=== PATIENT | male | born 1970 | race Caucasian/White ===

== ENCOUNTER → 2017-02-20 | Outpatient (CLI) | payer BC ==
[~2017-02-20] MED LIST: CHOL1000 PO; ESCI1TAB9 PO; FLUT0.15 NAE; IBUP-103 PO; LRT5 PO; MORP15TA19 PO; ZOLP10TA PO
--- NOTE | 2017-02-20 08:21 | DIAGNOSTIC IMAGING REPORT ---
(CHEST) THORAX WITHOUT CLINICAL HISTORY: 46 years-old Male presenting with ASBESTOS EXPOSURE,REDUCED VITAL CAPACITY. TECHNIQUE: Multidetector CT imaging of the chest was performed without the use of intravenous contrast. IV contrast: None. A dose lowering technique was used consistent with the principles of ALARA (as low as reasonably achievable). COMPARISON: Correlation made to chest x-ray from 04/24/2012. CT DOSE (mGy.cm): The estimated cumulative dose is 502.51 mGy.cm. FINDINGS: Drum Stock Clerk topogram: Unremarkable. On soft tissue windows, mass along the posterior aspect of the left thyroid lobe measures approximately 2.0 x 3.2 x 5.5 cm and may emanate from the thyroid, although this is not clearly demonstrated without the use of intravenous contrast. Nodule in the right thyroid lobe also suggested measuring 1.3 cm area No axillary, supraclavicular, or mediastinal lymphadenopathy. Evaluation for hilar lymphadenopathy is limited without intravenous contrast. Normal aorta. Multichamber enlargement of the heart. No pericardial or pleural effusion. Upper abdomen normal. On lung windows, minimal dependent changes likely atelectasis. No pleural thickening or pleural calcification evident. 3 mm solid pulmonary nodule in the right lower lobe (series 4 image 149). No other focal infiltrate or nodule. Airways patent. On bone windows, normal osseous structures. IMPRESSION: 1. No convincing evidence of acute intrathoracic pathology. No CT evidence of asbestos exposure. 2. 3 mm solid pulmonary nodule in the right lower lobe. Follow-up per Fleischner Society 2017 recommendations below. 3. 2.0 x 3.2 x 5.5 cm mass along the posterior left thyroid lobe, which may made from the thyroid although this is not clearly demonstrated. Further evaluation with dedicated thyroid ultrasound is recommended. Please refer to below summary of Fleischner Society 2017 recommendations for follow-up of incidental CT nodules (H Pedro et al. Guidelines for management of incidental pulmonary nodules detected on CT images: From the Fleischner Society 2017. Radiology 2017; 284: 228-243.) SOLID NODULES Single nodule; size <6 mm * Low risk patients: No routine follow-up * High risk patients: Optional CT at 12 months Single nodule; size 6-8 mm * Low risk patients: CT at 6-12 months, then consider CT at 18-24 months * High risk patients: CT at 6-12 months, then at 18-24 months Single nodule; size >8 mm * Either low or high risk patients: Considered CT at 3 months, PET/CT, or tissue sampling Multiple nodules; size <6 mm * Low risk patients: No routine follow up * High risk patients: Optional CT at 12 months Multiple nodules; size 6-8 mm * Low risk patients: CT at 3-6 months, then consider CT at 18-24 months * High risk patients: CT at 3-6 months, then at 18-24 months Multiple nodules; size >8 mm * Low risk patients: CT at 3-6 months, then consider at 18-24 months * High risk patients: CT at 3-6 months, then at 18-24 months Note: These guidelines apply to incidental nodules. These guidelines did not apply to patients younger than 35 years, immunocompromised patients, or patients with cancer. * Low risk patients: Minimal or absent history of smoking and/or other known risk factors * High risk patients: History of smoking, exposure to other carcinogens, emphysema, fibrosis, upper lobe location, family history of lung cancer, etc. * If a nodule up to 8 mm is partly solid or is ground glass further follow-up is required after 24 months to exclude possible slow growing adenocarcinoma SUBSOLID NODULES Single ground-glass nodule * Nodule size < 6 mm: No routine follow-up * Nodule size > or = 6 mm: CT at 6-12 months to confirm persistence, then CT every 2 years until 5 years Single part-solid nodule * Nodule size < 6 mm: No routine follow-up * Nodules size > or = 6 mm: CT at 3-6 months to confirm persistence. If unchanged and solid component remains < 6 mm, annual CT should be performed for 5 years Multiple nodules * Nodule size < 6 mm: CT at 3-6 months. If stable, consider CT at 2 and 4 years. * Nodules size > or = 6 mm: CT at 3-6 months. Subsequent management based on the most suspicious nodule(s) Electronically signed by: Eagle Nicole M.D. 02/20/2017 8:19 AM Dictated Date/Time: 02/20/2017 8:12 AM
== END | disposition home or self-care (01) ==
LOC: C.CTS 07:59
PROVIDERS: ATTEND Internal Medicine Critical Care Medicine
DX: R94.2 Abnormal results of pulmonary function studies (principal); Z77.090 Contact with and (suspected) exposure to asbestos; R91.1 Solitary pulmonary nodule; E04.1 Nontoxic single thyroid nodule

== ENCOUNTER → 2017-03-06 | Outpatient (CLI) | payer BC ==
--- NOTE | 2017-03-06 08:47 | DIAGNOSTIC IMAGING REPORT ---
SOFT TISS HEAD/NECK-THYROID CLINICAL HISTORY: 46 years-old Male with THYROID NODULE. 3.2 cm mass in region of the inferior left thyroid lobe was noted on comparison chest CT 02/20/2017. This is a follow-up study. COMPARISON: Chest CT 02/20/2017 TECHNIQUE: Multiple real time sonographic images of the thyroid were obtained accessing najera scale appearance and color doppler flow. FINDINGS: MEASUREMENTS: Right lobe: 5.0 x 1.9 x 2.6 cm Left lobe: 5.0 x 1.0 x 2.3 cm Isthmus: 0.3 cm PARENCHYMA: The thyroid parenchymal is mildly heterogeneous. NODULES: Numerous nodules and probable colloid cysts are noted. There is a septated versus two subadjacent predominantly cystic lesions which overall measure 3.8 x 1.3 x 1.5 cm in the right thyroid. No suspicious associated mural nodularity identified. There is a large lobulated thin-walled cystic structure involving the posterior left thyroid, 6.0 x 2.7 x 2.8 cm with a focus of mural nodularity measuring 6 x 4 mm demonstrating internal vascularity seen on image 29 of to 60. Smaller colloid cysts are also seen throughout the left thyroid. IMPRESSION: 1. Large lobulated cystic lesion of the left neck appears to originate from the left lobe of the thyroid measuring up to 6.0 cm demonstrating a small area of vascular mural nodularity as above. Follow-up ultrasound in 6 months is recommended to further evaluate. 2. Multiple colloid cysts are present bilaterally. The above report was generated using voice recognition software. It may contain grammatical, syntax or spelling errors. Electronically signed by: Josef Ferguson M.D. 03/06/2017 8:46 AM Dictated Date/Time: 03/06/2017 8:34 AM
[2017-03-06 11:38] LABS: THYROID STIMULATING HORMONE 1.08 uIu/ml (0.300-4.500)
== END | disposition home or self-care (01) ==
LOC: C.ULTRBC 08:04
DX: E04.1 Nontoxic single thyroid nodule (principal)

== ENCOUNTER → 2017-03-10 | Outpatient (CLI) | payer BC ==
[~2017-03-10] MED LIST changes: -FLUT0.15 NAE
[2017-03-10 17:46] LABS: BASO % 0.6 %; BASO ABS # 0.03 K/uL (0-0.2); COMPLETE YES; HEMATOCRIT 46.8 % (42-52); IG% 0.4 %; LYMPH % 25.6 %; LYMPH ABS # 1.35 K/uL (1.2-3.4); MEAN CELL VOLUME 86.2 fL (80-100); MEAN CORPUSCULAR HEMOGLOBIN 27.1 pg (25-34); MEAN CORPUSCULAR HGB CONC 31.4 g/dl (32-36); MEAN PLATELET VOLUME 9.7 fL (7.4-10.4); MONO % 7.8 %; NEUT % 62.6 %; PLATELET COUNT 239 K/uL (130-400); RED BLOOD COUNT 5.43 M/uL (4.7-6.1); WHITE BLOOD COUNT 5.27 K/uL (4.8-10.8)
[2017-03-10 17:57] LABS: INR 1.1 (0.9-1.1); PARTIAL THROMBOPLASTIN RATIO 1.1; PROTHROMBIN TIME (PATIENT) 11.3 SECONDS (9.0-12.0)
[2017-03-10 18:15] LABS: ALT/SGPT 35 U/L (12-78); BLOOD UREA NITROGEN 13 mg/dl (7-18); CALCIUM 8.9 mg/dl (8.5-10.1); CARBON DIOXIDE 29 mmol/L (21-32); CHLORIDE 105 mmol/L (98-107); GLUCOSE 98 mg/dl (70-99); POTASSIUM 3.9 mmol/L (3.5-5.1); SODIUM 141 mmol/L (136-145)
[2017-03-10 18:18] LABS: ALB/GLOB RATIO 1.1 (0.9-2); ALKALINE PHOSPHATASE 103 U/L (45-117); AST/SGOT 23 U/L (15-37)
== END | disposition home or self-care (01) ==
LOC: C.LAB 16:22
PROVIDERS: ATTEND Internal Medicine Critical Care Medicine
DX: J38.6 Stenosis of larynx (principal); Z77.090 Contact with and (suspected) exposure to asbestos

== ENCOUNTER 2017-03-15 07:22 | Day surgery (SDC) | payer BC ==
[2017-03-15] VITALS (19 sets, daily range): BP systolic 99–117; BP diastolic 68–77; PULSE 46–96; TEMP 36.4–36.5; O2SAT 95–100; Ht 190.5 cm; Wt 101.0 kg
[~2017-03-15] VITALS: Ht 190.5 cm; Wt 101.0 kg
[~2017-03-15 07:22] MED LIST changes: -CHOL1000 PO; -IBUP-103 PO
[2017-03-15] MEDS ORDERED: IBUP-103 PO (08:30)
[2017-03-15] MEDS ORDERED: CHOL1000 PO (08:30)
--- NOTE | 2017-03-15 08:42 | History and Physical ---
History & Physical Date Mar 15, 2017. 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 Yearly they have to do peak flow meters for evaluation and this year the patient was only able to blow at a rate of 400. Last year he was notably able to blow 750. Due to this the patient was sent for evaluation. 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 He also has a positive history sleep apnea treated was 10 centimeters of water pressure and intermittently with mouthpiece. Patient also notes first-degree relative, his dad, who of lung carcinoma. The patient denies any progressive dyspnea on exertion and is able to perform all his ADLs as well as play with his kids, riding motorcycles, playing soccer with no limitations as compared to the previous year. He also denies productive cough, pleurisy, cardiac chest pain, fever, chills or unintentional weight loss. He does have a longstanding history of rhinitis with postnasal drip and associated intermittent mucus secretions. Patient was then evaluated by Dr. Luis Estes of the ENT department via laryngoscopy Dr. Estes did note possible subglottic stenosis which will be evaluated during this patient's bronchoscopy. Bedside spirometry 01/12/2017 FEV1: 162% FVC: 143% FEV1/FVC 80 Past medical history 1. Deviated nasal septum 2. Esophageal reflux 3. Major depressive disorder 4. Impotence 5. Dyslipidemia 6. Moderate obstructive sleep apnea 7. Chronic sinusitis 8. Moderately severe sleep apnea (AHI: 17.7) Polysomnogram performed 3 2013--patient requires titration study Medications 1. Flonase 2 puffs b.i.d. 2. Lexapro 10 milligrams daily 3. Moderate leuk as 10 milligrams daily Drug allergies 1. Antihistamines-hives 2. Naproxen-sore throat mouth 3. Levofloxacin-sores in the mouth Past Medical/Surgical History Past medical history 1. Deviated nasal septum 2. Esophageal reflux 3. Major depressive disorder 4. Impotence 5. Dyslipidemia 6. Moderate obstructive sleep apnea 7. Chronic sinusitis 8. Moderately severe sleep apnea (AHI: 17.7) Polysomnogram performed 3 2013--patient requires titration study Medications 1. Flonase 2 puffs b.i.d. 2. Lexapro 10 milligrams daily 3. Moderate leuk as 10 milligrams daily Drug allergies 1. Antihistamines-hives 2. Naproxen-sore throat mouth 3. Levofloxacin-sores in the mouth Active Problems 1. Allergic rhinitis 2. Deviated nasal septum 3. Dyslipidemia, goal LDL below 100 4. Esophageal reflux 5. Impotence of organic origin 6. Major depressive disorder, single episode, moderate 7. Moderate obstructive sleep apnea 8. Reduced vital capacity Surgical History 1. History of Back Surgery Social History Does not use smokeless tobacco Never a smoker Occasional alcohol use Allergies 1. Antihistamine TABS 2. levofloxacin 3. Naproxen TABS Additional History Hepatic Disease: No Endocrine Disorder: Yes Kidney Disease: No Hypertension: No Heart Disease: No Bleeding Tendencies: No Infectious Diseases: No Allergies Coded Allergies: Diphenhydramine (Verified Allergy, Intermediate, hives, 03/15/17) Naproxen (Verified Adverse Reaction, Mild, SORES IN MOUTH, 03/15/17) Home Medications Scheduled Cholecalciferol (Vitamin D3), 2 TAB PO DAILY Escitalopram Oxalate (Lexapro), 10 MG PO DAILY Scheduled PRN Ibuprofen Tab (Advil), 400-600 MG PO Q6H PRN for Pain Physical Examination Skin: warm/dry, no rash Eyes: normal inspection, EOMI, sclerae normal ENT: normal ENT inspection, pharynx normal Head: normocephalic, atraumatic Neck: supple, no adenopathy, trachea midline Respiratory/Chest: lungs clear, normal breath sounds, no respiratory distress Cardiovascular: regular rate, rhythm, no edema, no murmur Abdomen / GI: normal bowel sounds, non tender Back: normal inspection Extremities: normal inspection, normal range of motion Neurologic/Psych: no motor/sensory deficits, alert, normal reflexes, oriented x 3 Diagnosis Progressive dyspnea on exertion 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
--- NOTE | 2017-03-15 09:09 | History & Physical Bridge Note ---
H&P Re-Evaluation Bridge Note: I have examined the patient, reviewed the History & Physical and in the interval since the performance of the History & Physical I have noted the following changes of clinical significance: No changes noted
--- NOTE | 2017-03-15 09:09 | Procedure Note ---
Pre-Mod Sedation Assessment General Date of Moderate Sedation: Mar 15, 2017. Vital Signs: Vital Signs Past 12 Hours Date Time Temp Pulse Resp B/P (MAP) Pulse Ox O2 Delivery O2 Flow Rate FiO2 03/15/17 08:33 36.4 55 20 107/70 (82) 95 Room Air Review Cardiovascular: regular rate, rhythm, no edema, no gallop, no JVD, no murmur, normal peripheral pulses Abdomen: normal bowel sounds, non tender, soft, no organomegaly, no pulsatile mass Lungs: chest non-tender, lungs clear, normal breath sounds Airway Class: III Pre-Sedation Airway Assessment Oral Cavity: Capped Teeth, WNL Short Thick Neck: No Hx of Sleep Apnea: Yes Smoking Status: Never Smoker Mallampati Classification: Class I ASA Classification: Class II Procedure Planning Contraindications-for Mod Sed: None Yes Notes The planned sedation has been discussed with the patient and consent obtained. I have identified the patient, determined the appropriateness of sedation and have assessed the patient immediately prior to the procedure. All medicine(s) and interventions are by my order.
[2017-03-15] MEDS ORDERED: NURSING VERBAL MED ORDER ONE ×2 (09:15→12:00)
--- NOTE | 2017-03-15 10:05 | Procedure Note ---
Post-Moderate Sedation Plan General Date of Moderate Sedation Mar 15, 2017. Vital Signs: Vital Signs Past 12 Hours Date Time Temp Pulse Resp B/P (MAP) Pulse Ox O2 Delivery O2 Flow Rate FiO2 03/15/17 09:50 54 16 105/72 100 Mask 4.0 03/15/17 09:45 56 20 113/76 100 Room Air 8.0 03/15/17 09:40 47 20 108/76 100 Room Air 8.0 03/15/17 09:35 49 20 111/77 100 Room Air 8.0 03/15/17 09:30 51 20 108/68 100 Room Air 8.0 03/15/17 09:25 46 20 104/72 100 Room Air 8.0 03/15/17 09:22 48 20 111/77 100 Room Air 8.0 03/15/17 09:10 36.4 55 20 107/70 95 Room Air 03/15/17 08:33 36.4 55 20 107/70 (82) 95 Room Air Review - Discharge Plan Post Moderate Sedation Plan: On clinical assessment, the patient appears to have tolerated the conscious sedation without complications. Patient is recovering as anticipated. Patient will continue to be monitored by nursing and may be discharged when conscious sedation discharge criteria are met.
--- NOTE | 2017-03-15 10:08 | Bronchoscopy Procedure Note ---
Bronchoscopy Procedure Note Procedure: Bronchoscopy, conscious sedation, bronchial lavage lingula Consent: Obtained through the patient placed into the chart Pre-procedural diagnosis: Subglottic stenosis/tracheal stenosis Post-procedural diagnosis: Progressive dyspnea on exertion Start time: 944 End time: 1000 Total time: 15 minutes Analgesia: 2% liquid lidocaine: Via nebulizer 4% gel lidocaine: Via right naris 2% liquid lidocaine: Via bronchoscopy Sedation: Versed IV: 2mg Fentanyl IV: 50 g Procedure: The Olympus video bronchoscope was used for this procedure and passed down through the right naris Right naris/posterior naris/posterior oropharynx: Anatomically within normal limits Glottis: Anatomically within normal limits Vocal cords: Proper abduction and abduction, anatomically within normal limits Subglottis: Anatomically within normal limits Trachea: Anatomically within normal limits there is some mild inward flexion of 10th 11 tracheal ring but no signs of malacia no signs of significant tracheal obstruction Sarina: Anatomically within normal limits Right bronchial tree: Right mainstem bronchus: Anatomically within normal limits Right upper lobe: Anatomically within normal limits Bronchus intermedius: Anatomically within normal limits Right middle lobe: Anatomically within normal limits Right lower lobe: Anatomically within normal limits Findings: No significant findings noted Left bronchial tree: Left mainstem bronchus: Anatomically within normal limits Left upper lobe: Anatomically within normal limits Lingula: Anatomically within normal limits Left lower lobe: Anatomically within normal limits Findings: No significant findings noted Bronchial alveolar lavage: Lingula EBL: None Complications: None Follow-up: In the [facility]
--- NOTE | 2017-03-15 10:11 | Discharge Instructions ---
Discharge Instructions Date of Service Mar 15, 2017. Admission Reason for Admission: Subglottic Stenosis, Dr Sung Discharge Discharge Diagnosis / Problem: initial diagnosis possible tracheal stenosis/ postprocedural diagnosis progr Discharge Goals Goal(s): Diagnostic testing Activity Recommendations Activity Limitations: resume your previous activity . Instructions / Follow-Up Instructions / Follow-Up Follow-up with Dr. Luis Saucedo from the ENT department [facility] well [facility] Current Hospital Diet Patient's current hospital diet: Discharge Diet Recommended Diet: Regular Diet Procedures Procedures Performed: Bronchoscopy, bronchial lavage of the lingula Conscious sedation Pending Studies Studies pending at discharge: no Medical Emergencies . Who to Call and When: Medical Emergencies: If at any time you feel your situation is an emergency, please call 911 immediately. . Non-Emergent Contact Non-Emergency issues call your: Warp Hauler . . "Provider Documentation" section prepared by Edgar Sung. . VTE Core Measure Inpt VTE Proph given/why not?: Treatment not indicated
[2017-03-15] MEDS ORDERED: DEXTROSE 5% 1000ML 1,000 ML IV ONE (10:45)
[2017-03-15] MEDS ORDERED: FENTANYL CITRATE INJ 50 MCG/1 ML 2 ML VIAL IV ONE (12:15)
[2017-03-15] MEDS ORDERED: MIDAZOLAM HCL 5 MG/ML 1 ML VIAL IV ONE (12:15)
== END 2017-03-15 12:21 | disposition home or self-care (01) ==
LOC: C.ACU 07:22
PROVIDERS: ATTEND Internal Medicine Critical Care Medicine
DX: J38.6 Stenosis of larynx (principal); Z77.090 Contact with and (suspected) exposure to asbestos; R06.00 Dyspnea, unspecified

== ENCOUNTER 2017-03-29 08:07 | Inpatient (IN) | payer BC ==
[2017-03-23 12:05] VITALS: BMI 28.0
--- NOTE | 2017-03-23 12:42 | PAT Medication Instructions ---
Service Date Mar 23, 2017. Current Home Medication List Cholecalciferol (Vitamin D3), 2,000 UNITS PO QAM Escitalopram Oxalate (Lexapro), 10 MG PO QAM Fluticasone Propionate (Nasal) (Flonase Allergy Relief), 2 SPRAYS TONI QAM Ibuprofen Tab (Advil), 400-600 MG PO Q6H PRN for Pain Medication Instructions For Your Scheduled Surgery - Hold the following medications 2 weeks prior to surgery per surgeon's instructions: Ibuprofen Tab (Advil), 400-600 MG PO Q6H PRN for Pain - Hold the following medications the morning of surgery: Cholecalciferol (Vitamin D3), 2,000 UNITS PO QAM - Take the following medications the morning of surgery with a sip of water: Fluticasone Propionate (Nasal) (Flonase Allergy Relief), 2 SPRAYS TONI QAM Escitalopram Oxalate (Lexapro), 10 MG PO QAM If you have any questions please call us at [phone] or [phone] or [phone]
[2017-03-29] VITALS (8 sets, daily range): BP systolic 107–127; BP diastolic 63–79; PULSE 50–67; TEMP 36.4–36.7; O2SAT 94–98; Ht 190.5 cm; Wt 103.0 kg
[~2017-03-29] VITALS: Ht 190.5 cm; Wt 103.0 kg
[~2017-03-29 08:07] MED LIST changes: +CEFAZOLIN 2000 MG/60 ML D5W 60 ML IV SCH; +CHOL1000 PO; +FLUT0.15 NAE; +IBUP-103 PO; +LACTATED RINGER'S 1000ML 1,000 ML IV SCH; -LRT5 PO; -MORP15TA19 PO; +SCOPOLAMINE 1.5 MG TDSY TD SCH; -ZOLP10TA PO
[2017-03-29] MEDS ORDERED: FENTANYL CITRATE INJ 50 MCG/1 ML 2 ML VIAL ONE ×3 (09:13→12:47)
[2017-03-29] MEDS ORDERED: MIDAZOLAM HCL 1 MG/ML 2ML VIAL ONE (09:13)
[2017-03-29] MEDS ORDERED: ONDANSETRON INJ 2 MG/ML 2 ML VIAL IV PRN (09:45)
[2017-03-29] MEDS ORDERED: EpHEDrine SULFATE INJ 50 MG/ML AMP IV PRN (09:45)
[2017-03-29] MEDS ORDERED: PROMETHAZINE HCL INJ 6.25 MG in SODIUM CHLORIDE 0.9% 50ML 50 ML IV PRN (09:45)
[2017-03-29] MEDS ORDERED: ATROPINE SULFATE 0.1 MG/ML 5ML SYR IV PRN (09:45)
[2017-03-29] MEDS ORDERED: LIDOCAINE/EPINEPHRINE 1% 20 ML VIAL ONE (10:56)
[2017-03-29] MEDS ORDERED: THROMBIN 5000 UNITS KIT ONE (10:56)
[2017-03-29] MEDS ORDERED: BACITRACIN OINT 15 GM TUBE ONE (10:56)
[2017-03-29] MEDS ORDERED: PROPOFOL IV EMULSION 10 MG/ML 20 ML VIAL IV ONE (11:51)
[2017-03-29] MEDS ORDERED: LIDOCAINE HCL 2% 2 ML VIAL (20MG/ML) ONE (11:51)
[2017-03-29] MEDS ORDERED: ROCURONIUM BROMIDE 10 MG/ML 5 ML VIAL IV ONE (11:51)
[2017-03-29] MEDS ORDERED: DEXAMETHASONE SOD INJ 4 MG/ML VIAL ONE (11:52)
[2017-03-29] MEDS ORDERED: ONDANSETRON INJ 2 MG/ML 2 ML VIAL ONE (11:52)
--- NOTE | 2017-03-29 13:23 | [facility] Operative Report ---
Operative Report Operative Date Mar 29, 2017. Pre-Operative Diagnosis Thyroid nodule/Substernal goiter Post-Operative Diagnosis Same Procedure(s) Performed Total Thyroidectomy Surgeon Dr. Luis Estes Food Safety Technician Surgeon(s) Mary Miles PA-C Estimated Blood Loss 25ml Findings 1. large ~6cm cystic nodule left inferior thyroid lobe extending substernally 2. ~3cm cystic nodule right mid pole Specimens Permanent Specimens: A.) Right Thyroid Lobe, Double Stitch Superior Pole, Single Stitch Isthmus B.) Left Thyroid Lobe, Double Stitch Superior Pole, Single Stitch Isthmus I attest to the content of the Intraoperative Record and any orders documented therein. Any exceptions are noted below.
[2017-03-29] MEDS ORDERED: MoRPHine SULFATE 2 MG/ML CARP IV PRN (13:30)
[2017-03-29] MEDS ORDERED: ACETAMINOPHEN 325 MG TAB PO PRN (13:30)
--- NOTE | 2017-03-29 13:30 | Discharge Instructions ---
Discharge Instructions Date of Service Mar 29, 2017. Admission Reason for Admission: Subglottic Stenosis, Thyroid Nodule Discharge Discharge Diagnosis / Problem: SAME Discharge Goals Goal(s): Therapeutic intervention Activity Recommendations Activity Limitations: as noted below 1. LIGHT ACTIVITY FOR 2 WEEKS 2. NO DRIVING WHILE ON NORCO . Current Hospital Diet Patient's current hospital diet: Discharge Diet Recommended Diet: Regular Diet Procedures Procedures Performed: Total Thyroidectomy Pending Studies Studies pending at discharge: no Medical Emergencies . Who to Call and When: Medical Emergencies: If at any time you feel your situation is an emergency, please call 911 immediately. . Non-Emergent Contact Non-Emergency issues call your: Surgeon . . "Provider Documentation" section prepared by Luis Estes. . VTE Core Measure Inpt VTE Proph given/why not?: SCD's
[2017-03-29] MEDS: FENTANYL CITRATE INJ 50 MCG/1 ML 2 ML VIAL IV PRN ×4 (13:59→14:13)
--- NOTE | 2017-03-29 14:01 | OPERATIVE REPORT ---
DATE OF OPERATION: 03/29/2017 PREOPERATIVE DIAGNOSIS: Left greater than right multinodular goiter with a large substernal cystic nodule on the left hand side. POSTOPERATIVE DIAGNOSIS: Left greater than right multinodular goiter with a large substernal cystic nodule on the left hand side. PROCEDURE: Total thyroidectomy. SURGEON: Dr. Estes. PLASTIC SURGERY SPECIALIST: Jd. ANESTHESIA: General endotracheal with nerve integrity monitor endotracheal tube. ESTIMATED BLOOD LOSS: 25 mL. FINDINGS: 1. Large cystic left inferior pole thyroid nodule that measured approximately 6 cm and extended substernally. 2. Approximate 3 cm right mid pole cystic nodule. SPECIMENS: Right and left thyroid lobe sent separately for permanent pathological assessment. DRAINS: None. COMPLICATIONS: None. INDICATIONS FOR THE PROCEDURE: The patient is a 46-year-old male who had a history of dyspnea and was evaluated by pulmonary who ordered a CT scan of the chest which incidentally showed a multinodular thyroid gland with a large cystic nodule emanating from the posterior aspect of the left thyroid gland and extending into the chest. There was no significant tracheal deviation. The patient also had a followup thyroid ultrasound that I ordered which showed overall a multinodular goiter with also a cystic nodule involving the right side that measured approximately 3.8 cm. Due to the diagnostic dilemma of these large nodules as well as the progressive dyspnea, total thyroidectomy was recommended. The patient presents for the above-mentioned procedure on an inpatient elective basis. DESCRIPTION OF PROCEDURE: After informed consent had been obtained from the patient, the patient was wheeled to the operating room and placed on the operating room table in the supine position. Monitors were placed. After induction of general endotracheal anesthesia with a size 8 nerve integrity monitor endotracheal tube, the patient's head and neck were gently extended and a marking pen was used to outline the planned 6 cm incision in a natural skin crease 2 fingerbreadths above the level of clavicles. A total of 3 mL of 1% lidocaine with 1:100,000 epinephrine was used to inject the skin and subcutaneous tissues overlying the planned incision site. The skin in the neck and chest was then prepped and draped in the usual sterile fashion. A #15 scalpel was then used to make the incision through the skin, subcutaneous tissue, and platysma. Subplatysmal flaps were raised superiorly to the level of the thyroid notch and inferiorly to the level of the clavicles. The median raphe of the straps was divided using Bovie electrocautery. The strap muscles were retracted laterally and the right thyroid lobe was first addressed. Overall, the gland was quite large and therefore the decision was made to divide the strap muscles transversely using a Harmonic scalpel. The middle thyroid vein as well as superior and inferior thyroid vascular pedicles were divided adjacent to the thyroid capsule using a Harmonic scalpel. Dissection was carried lateral to medial with care to identify and preserve the right recurrent laryngeal nerve. Also, superior and inferior parathyroid candidates were identified and preserved. Due to the large size of the gland, the thyroid gland was divided at the isthmus using Harmonic scalpel. Orienting sutures were placed onto the right thyroid lobectomy specimen, which was sent off for permanent pathological assessment. Of note, there was a large cystic nodule measuring 3-4 cm involving the mid pole on the right side. The left side was then addressed in a similar fashion. On this side, there was a large cystic nodule involving the inferior aspect that extended substernally. During the dissection, the cyst inadvertently popped. The left side was removed in similar fashion to the right hand side with care to identify and preserve the left recurrent laryngeal nerve as well as superior and inferior parathyroid candidates. Orienting sutures were placed on the left thyroid lobectomy specimen which was sent off for permanent pathologic specimen. The wounds were copiously irrigated with sterile water and suctioned. Hemostasis was confirmed with a Valsalva maneuver. Small pieces of Surgicel followed by topical spray thrombin were placed in the bilateral tracheoesophageal grooves for added hemostatic effect. The divided strap muscles were then reapproximated using several simple interrupted 3-0 Vicryl sutures. The strap muscles were then reapproximated in the midline using a simple running interlocked 3-0 Vicryl suture. The platysma was then closed with several deep 4-0 Monocryl sutures. The skin was then closed with a simple running subcuticular 5-0 Monocryl suture. The incision was cleansed and dried. Dermabond was applied to the incision. This marked the end of the case. The patient tolerated the procedure well. There were no apparent complications. The patient was extubated and transferred to recovery room in stable condition. I attest to the content of the Intraoperative Record and any orders documented therein. Any exception s are noted below.
--- NOTE | 2017-03-29 14:43 | Anesthesiology Progress Note ---
Anesthesia Post Op Note Date & Time Mar 29, 2017 at 14:43 Vital Signs Pain Intensity: 4 Vital Signs Past 12 Hours Date Time Temp Pulse Resp B/P (MAP) Pulse Ox O2 Delivery O2 Flow Rate FiO2 03/29/17 14:40 36.4 70 16 121/66 97 Nasal Cannula 2 03/29/17 14:30 77 16 123/81 97 Nasal Cannula 2 03/29/17 14:20 36.4 78 16 121/82 97 Nasal Cannula 2 03/29/17 14:10 85 16 123/71 99 Oxymask 10 03/29/17 14:00 79 16 122/83 99 Oxymask 10 03/29/17 13:53 36.8 81 16 122/73 98 Oxymask 10 03/29/17 08:36 36.4 59 18 117/67 (84) 96 Room Air Notes Mental Status: alert / awake / arousable, participated in evaluation Pt Amnestic to Procedure: Yes Nausea / Vomiting: adequately controlled Pain: adequately controlled Airway Patency, RR, SpO2: stable & adequate BP & HR: stable & adequate Hydration State: stable & adequate Anesthetic Complications: no major complications apparent
[2017-03-29] MEDS: ONDANSETRON INJ 2 MG/ML 2 ML VIAL IV PRN ×2 (15:19→21:42)
[2017-03-29] MEDS ORDERED: INFLUENZA VIRUS QUAD VACCINE 0.5 ML SYR IM. ONE (15:45)
[2017-03-29] MEDS ORDERED: INFLUENZA ADMINISTRATION CHARGE ONE (15:45)
[2017-03-29] MEDS ORDERED: LACTATED RINGER'S 1000ML 1,000 ML IV SCH (16:00)
[2017-03-29] MEDS: CHECK SCOPOLAMINE PATCH PLACEMENT SCH (16:28)
[2017-03-29] MEDS: HYDROCODONE/ACETAMOPHEN 5/325MG TAB PO PRN ×2 (16:33→21:47)
[2017-03-29 19:43] LABS: CALCIUM 8.8 mg/dl (8.5-10.1); PHOSPHORUS 1.8 mg/dl (2.5-4.9)
[2017-03-30] MEDS: CHECK SCOPOLAMINE PATCH PLACEMENT SCH ×2 (00:15→07:36)
[2017-03-30 01:03] LABS: CALCIUM 8.1 mg/dl (8.5-10.1)
[2017-03-30 01:11] LABS: MAGNESIUM 1.8 mg/dl (1.8-2.4); PHOSPHORUS 3.3 mg/dl (2.5-4.9)
[2017-03-30] MEDS: HYDROCODONE/ACETAMOPHEN 5/325MG TAB PO PRN ×2 (01:49→07:37)
[2017-03-30] MEDS ORDERED: NURSING VERBAL MED ORDER ONE (02:30)
[2017-03-30 03:47] VITALS: BP 115/63; PULSE 54; TEMP 36.5; O2SAT 96
--- NOTE | 2017-03-30 05:51 | ENT PROGRESS NOTE ---
DATE: 03/30/2017 SUBJECTIVE: The patient is postoperative day #1 status post total thyroidectomy for a multinodular goiter with a large 6 cm cystic left inferior thyroid pole mass that extended into his mediastinum. Postoperatively, the patient has done well. He has no complaints. There is no hoarseness or dysphagia. He denies any perioral or digital numbness or paresthesias. He denies any involuntary muscle spasms or cramps. OBJECTIVE: The patient is afebrile and his vital signs are stable. The patient has a normal voice. His neck incision is clean, dry and intact with Dermabond in place. There is no evidence of hematoma. LABORATORY DATA: Examinations show calcium that was 8.8 and it decreased to 8.1. He has 7:00 a.m. labs pending. ASSESSMENT AND PLAN: Postoperative day #1 status post total thyroidectomy. We will check his calcium this morning and determine whether or not he will need oral calcium and vitamin D replacement prior to discharge, likely later today.
[2017-03-30] MEDS ORDERED: LEVOTHYROXINE 150 MCG TAB PO SCH (06:00)
[2017-03-30 06:59] VITALS: BP 107/69; PULSE 47; TEMP 36.5; O2SAT 97
[2017-03-30] MEDS: ONDANSETRON INJ 2 MG/ML 2 ML VIAL IV PRN (07:37)
[2017-03-30 07:38] LABS: CALCIUM 8.2 mg/dl (8.5-10.1); MAGNESIUM 2.2 mg/dl (1.8-2.4); PHOSPHORUS 3.2 mg/dl (2.5-4.9)
--- NOTE | 2017-03-30 07:57 | DISCHARGE SUMMARY ---
HOSPITAL COURSE: The patient is a pleasant 46-year-old male who had a CT scan of his chest to workup progressive dyspnea and it was noted that he had a left greater than right multinodular goiter with a large 6 cm cystic mass extending into the substernal region. He had a thyroid ultrasound which showed not only the 6 cm left posterior inferior thyroid mass with substernal extension but also a 3.8 cm right thyroid cystic nodule. Options including needle biopsy versus observation versus total thyroidectomy were discussed with the patient. He opted for total thyroidectomy. He presented for this on 03/29/2017 with intraoperative finding of a large left greater than right multinodular goiter with a large 6 cm cystic mass extending into the substernal region but no tracheal compression or deviation in addition to a 3-to 4-cm right midpole thyroid nodule. The patient tolerated the procedure well with no apparent complications. His voice was normal and he had no dysphasia postoperatively. He had mildly low calcium levels but this was associated with lowered albumin levels and so when the serum calcium was corrected it was actually within normal limits. He is also asymptomatic from a hypocalcemia standpoint. DISCHARGE MEDICATIONS: He was discharged to home on postoperative day #1 on the following medications: [place] 5/325 mg 1 to 2 tablets p.o. q. 4 hours p.r.n. with 40 tablets given as well as Synthroid 150 mcg daily. DISCHARGE FOLLOWUP: The patient is to follow up in my office on postoperative day #6. He is to call my office if he develops any numbness or tingling along in his lips, fingers, or toes and/or any involuntary muscle spasms or cramps. He should keep his incision dry until his followup appointment and keep ice on his neck as much as tolerated up until his followup appointment.
[2017-03-30 08:26] VITALS: BP 107/69; PULSE 47; TEMP 36.5; O2SAT 97
[2017-03-30] MEDS ORDERED: FLUTICASONE PROPIONATE NA SPR 16 GM BTL NAE SCH (09:00)
[2017-03-30] MEDS ORDERED: CHOLECALCIFEROL 1000 INTER.UNIT TAB PO SCH (09:00)
[2017-03-30] MEDS ORDERED: ESCITALOPRAM OXALATE 10 MG TAB PO SCH (09:00)
== END 2017-03-30 11:00 | disposition home or self-care (01) | DRG 627 ==
LOC: C.ACU 08:07 → C.MSW 08:25 → ENRESERV 14:31
PROC: 0GTK0ZZ Resection of Thyroid Gland, Open Approach (ICD-10-PCS; principal; 2017-03-29 09:45)
DX: E04.2 Nontoxic multinodular goiter (principal); J38.6 Stenosis of larynx; E78.5 Hyperlipidemia, unspecified; Z77.090 Contact with and (suspected) exposure to asbestos